=== PATIENT | female | born 1955 | race African-American/Black ===

== ENCOUNTER → 2018-09-24 | Outpatient (CLI) | payer MEDICARE, MEDICAID | END | disposition home or self-care (01) | LOC: RAD 11:39 | DX: M47.815 Spondylosis without myelopathy or radiculopathy, thoracolumbar region (principal); M47.817 Spondylosis without myelopathy or radiculopathy, lumbosacral region; M43.26 Fusion of spine, lumbar region; Z98.890 Other specified postprocedural states | CPT/HCPCS: 72100; 73502 ==

== ENCOUNTER 2022-01-07 07:20 | Inpatient (IN) | payer OTHER, MEDICAID ==
[~2022-01-07] VITALS: Ht 165.1 cm; Wt 126.1 kg
[2022-01-07 10:29] LABS: BASOPHILS % 0.6 % (0.0-2.0); EOSINOPHILS % 1.2 % (0.0-5.0); HEMATOCRIT. 37.3 % (36.0-48.0); HEMOGLOBIN. 12.2 g/dL (12.0-16.0); LYMPHOCYTES % 7.1 % (20.0-50.0); MEAN CORPUSCULAR VOLUME 91.5 fL (81.0-99.0); MEAN PLATELET VOLUME 8.4 fl (7.4-10.4); MONOCYTES % 5.3 % (2.0-8.0); NEUTROPHILS % 85.8 % (40.0-76.0); PLATELET 289 x1000/uL (130-400); RED BLOOD CELL COUNT 4.08 mill/uL (4.2-5.4); RED CELL DISTRIBUTION WIDTH 15.5 % (11.6-14.6)
[2022-01-07 10:35] LABS: CHLORIDE 105 mEq/L (98-107)
[2022-01-07 10:38] LABS: PROTHROMBIN TIME 10.3 sec (9.6-11.0)
[2022-01-07 11:50] LABS: CLARITY URINE CLEAR (CLEAR); COLOR URINE YELLOW (YELLOW); KETONES URINE TRACE (NEGATIVE); LEUKOCYTE ESTERASE URINE NEGATIVE (NEGATIVE); NITRITE URINE NEGATIVE (NEGATIVE); OCCULT BLOOD URINE NEGATIVE (NEGATIVE); PH URINE 5.5 (4.5-8.0); PROTEIN URINE NEGATIVE (NEGATIVE); SPECIFIC GRAVITY URINE 1.026 (1.005-1.030); UROBILINOGEN URINE 0.2 E.U./dL (0.2-1.0)
[2022-01-07 17:00] VITALS: BP_SYST 141; BP_SYST 142; BP_DIAS 82; BP_DIAS 91
[2022-01-07] MEDS ORDERED: LOSA50TA41 PO (17:29)
[2022-01-07] MEDS ORDERED: DILT30TA3 PO (17:29)
[2022-01-07] MEDS ORDERED: FURO40TA5 PO (17:29)
[2022-01-07] MEDS ORDERED: ATOR20TA65 PO (17:29)
[2022-01-07] MEDS ORDERED: ONDANSETRON HCL 4MG/2ML INJ IV PRN (17:30)
[2022-01-07] MEDS ORDERED: DEXTROSE 50% WATER 50ML SYRINGE IV PRN ×2 (17:30→19:30)
[2022-01-07] MEDS ORDERED: ACETAMINOPHEN 325MG TABLET PO PRN (17:30)
[2022-01-07] MEDS ORDERED: ACETAMINOPHEN 650MG/20.3ML UDC PO PRN (17:30)
[2022-01-07] MEDS ORDERED: IPRATROPIUM/ALBUTEROL 0.5-3(2.5)MG/3ML NEB NEB PRN (17:30)
[2022-01-07] MEDS ORDERED: CLONIDINE 0.1MG TABLET PO PRN (17:30)
[2022-01-07] MEDS: ENOXAPARIN 30MG/0.3ML SYR SUBCUT SCH (18:12)
[2022-01-07] MEDS ORDERED: ZAFI20TA13 PO (19:24)
[2022-01-07] MEDS ORDERED: DICL50TA7 PO (19:27)
[2022-01-07] MEDS ORDERED: EMPA25TA PO (19:28)
[2022-01-07] MEDS ORDERED: CALC0.253 PO (19:28)
[2022-01-07] MEDS ORDERED: POTA10CA42 PO (19:29)
[2022-01-07] MEDS ORDERED: GLIM1TAB PO (19:29)
[2022-01-07] MEDS ORDERED: PIOG15TA68 PO (19:30)
[2022-01-07] MEDS ORDERED: OMEP40CA20 PO (19:30)
[2022-01-07 20:00] VITALS: BP 137/93
[2022-01-07] MEDS: ATORVASTATIN CALCIUM 20MG TABLET PO SCH (20:49)
[2022-01-07] MEDS: BLOOD SUGAR DIAGNOSTIC STRIP TEST SCH (20:49)
[2022-01-07] MEDS: INSULIN LISPRO 100 UNITS/ML SUBCUT SCH (20:50)
[2022-01-07] MEDS ORDERED: INSULIN LISPRO 100 UNITS/ML SUBCUT SCH (21:00)
[2022-01-07] MEDS ORDERED: HEPARIN 5000 UNITS/ML VIAL SUBCUT SCH (21:00)
[2022-01-07] MEDS ORDERED: BLOOD SUGAR DIAGNOSTIC STRIP TEST SCH (21:00)
[2022-01-07 22:00] VITALS: BP 140/58
[2022-01-08] VITALS: BP 116/44
[2022-01-08 05:00] VITALS: BP 142/73
[2022-01-08] MEDS: BLOOD SUGAR DIAGNOSTIC STRIP TEST SCH ×4 (06:08→21:13)
[2022-01-08] MEDS: ENOXAPARIN 30MG/0.3ML SYR SUBCUT SCH ×2 (06:08→18:22)
[2022-01-08 07:08] LABS: BASOPHILS % 0.4 % (0.0-2.0); EOSINOPHILS % 2.2 % (0.0-5.0); HEMATOCRIT. 34.7 % (36.0-48.0); HEMOGLOBIN. 11.6 g/dL (12.0-16.0); LYMPHOCYTES % 15.9 % (20.0-50.0); MEAN CORPUSCULAR HEMOGLOBIN 30.2 pg (28.0-32.0); MEAN CORPUSCULAR VOLUME 90.8 fL (81.0-99.0); MEAN PLATELET VOLUME 7.9 fl (7.4-10.4); MONOCYTES % 6.4 % (2.0-8.0); NEUTROPHILS % 75.1 % (40.0-76.0); PLATELET 245 x1000/uL (130-400); RED BLOOD CELL COUNT 3.82 mill/uL (4.2-5.4); RED CELL DISTRIBUTION WIDTH 15.6 % (11.6-14.6)
[2022-01-08 07:20] LABS: CHLORIDE 108 mEq/L (98-107)
[2022-01-08 08:00] VITALS: BP 126/66
[2022-01-08] MEDS ORDERED: ASPIRIN 81MG TABLET PO SCH (09:00)
[2022-01-08] MEDS ORDERED: LOSARTAN POTASSIUM 50 MG TABLET PO SCH (09:00)
[2022-01-08] MEDS: DILTIAZEM HCL 30MG TABLET PO SCH (09:08)
[2022-01-08] MEDS: FUROSEMIDE 40MG TABLET PO SCH ×2 (09:09→18:22)
[2022-01-08] MEDS: INSULIN LISPRO 100 UNITS/ML SUBCUT SCH ×4 (09:10→21:57)
[2022-01-08 12:00] VITALS: BP 134/77
[2022-01-08 16:00] VITALS: BP 142/65
[2022-01-08 20:05] VITALS: BP 152/97
[2022-01-08] MEDS: ATORVASTATIN CALCIUM 20MG TABLET PO SCH (21:10)
[2022-01-09] VITALS (7 sets, daily range): BP systolic 125–155; BP diastolic 64–78
[2022-01-09] MEDS: ENOXAPARIN 30MG/0.3ML SYR SUBCUT SCH ×2 (05:49→17:59)
[2022-01-09] MEDS: BLOOD SUGAR DIAGNOSTIC STRIP TEST SCH ×4 (05:54→20:57)
[2022-01-09] MEDS: INSULIN LISPRO 100 UNITS/ML SUBCUT SCH ×4 (07:20→21:03)
[2022-01-09] MEDS: DILTIAZEM HCL 30MG TABLET PO SCH (09:03)
[2022-01-09] MEDS: FUROSEMIDE 40MG TABLET PO SCH ×2 (09:04→17:57)
[2022-01-09] MEDS ORDERED: DEXAMETHASONE 4MG/ML 1ML VIAL IV NR (16:45)
[2022-01-09] MEDS: ATORVASTATIN CALCIUM 20MG TABLET PO SCH (21:02)
[2022-01-10 00:03] VITALS: BP 112/61
[2022-01-10 04:00] VITALS: BP 145/32
[2022-01-10] MEDS: ENOXAPARIN 30MG/0.3ML SYR SUBCUT SCH ×2 (06:46→17:59)
[2022-01-10] MEDS: BLOOD SUGAR DIAGNOSTIC STRIP TEST SCH ×4 (06:46→21:50)
[2022-01-10 08:23] VITALS: BP 148/72
[2022-01-10 08:36] LABS: BASOPHILS % 0.4 % (0.0-2.0); EOSINOPHILS % 0.1 % (0.0-5.0); HEMATOCRIT. 41.2 % (36.0-48.0); HEMOGLOBIN. 13.6 g/dL (12.0-16.0); LYMPHOCYTES % 10.4 % (20.0-50.0); MEAN CORPUSCULAR HEMOGLOBIN 30.4 pg (28.0-32.0); MEAN CORPUSCULAR VOLUME 92.1 fL (81.0-99.0); MONOCYTES % 3.5 % (2.0-8.0); NEUTROPHILS % 85.6 % (40.0-76.0); PLATELET 265 x1000/uL (130-400); RED BLOOD CELL COUNT 4.48 mill/uL (4.2-5.4); RED CELL DISTRIBUTION WIDTH 15.4 % (11.6-14.6)
[2022-01-10] MEDS: DILTIAZEM HCL 30MG TABLET PO SCH (09:27)
[2022-01-10] MEDS: FUROSEMIDE 40MG TABLET PO SCH ×2 (09:28→17:57)
[2022-01-10] MEDS: INSULIN LISPRO 100 UNITS/ML SUBCUT SCH ×5 (09:29→21:58)
[2022-01-10 12:23] VITALS: BP 141/73
[2022-01-10 16:00] VITALS: BP 151/64
[2022-01-10 20:00] VITALS: BP 121/67
[2022-01-10] MEDS: ATORVASTATIN CALCIUM 20MG TABLET PO SCH (21:57)
[2022-01-11] VITALS: BP 120/53
[2022-01-11 04:00] VITALS: BP 129/65
[2022-01-11] MEDS: ENOXAPARIN 30MG/0.3ML SYR SUBCUT SCH ×2 (06:04→17:36)
[2022-01-11] MEDS: BLOOD SUGAR DIAGNOSTIC STRIP TEST SCH ×4 (06:51→21:36)
[2022-01-11] MEDS: FUROSEMIDE 40MG TABLET PO SCH ×2 (08:11→17:36)
[2022-01-11] MEDS: DILTIAZEM HCL 30MG TABLET PO SCH (08:11)
[2022-01-11] MEDS: INSULIN LISPRO 100 UNITS/ML SUBCUT SCH ×4 (08:12→21:23)
[2022-01-11 08:23] VITALS: BP 113/21
[2022-01-11 12:00] VITALS: BP 151/84
[2022-01-11] MEDS: DEXAMETHASONE 4MG/ML 1ML VIAL IV SCH ×2 (12:33→17:37)
[2022-01-11] MEDS ORDERED: NETA2.5D EACHEYE (15:34)
[2022-01-11] MEDS ORDERED: DORZ10DR8 LEFTEYE (15:34)
[2022-01-11] MEDS ORDERED: BRIM5DRO LEFTEYE (15:34)
[2022-01-11 16:23] VITALS: BP 143/67
[2022-01-11] MEDS: DORZOLAMIDE 2% OP SCH (17:00)
[2022-01-11] MEDS: ALPHAGAN P 0.1% OP SCH (17:00)
[2022-01-11] MEDS: GUAIFENESIN 200MG/10ML SUGAR FREE UDC PO PRN (18:48)
[2022-01-11 20:00] VITALS: BP 135/75
[2022-01-11] MEDS ORDERED: RHOPRESSA 0.02% OP SCH (21:00)
[2022-01-11] MEDS ORDERED: INSULIN LISPRO 100 UNITS/ML SUBCUT NR (21:00)
[2022-01-11] MEDS: ATORVASTATIN CALCIUM 20MG TABLET PO SCH (21:19)
[2022-01-12] VITALS: BP 137/72
[2022-01-12] MEDS: DEXAMETHASONE 4MG/ML 1ML VIAL IV SCH ×3 (00:54→12:57)
[2022-01-12] MEDS: GUAIFENESIN 200MG/10ML SUGAR FREE UDC PO PRN ×2 (00:54→09:36)
[2022-01-12 04:00] VITALS: BP 141/74
[2022-01-12] MEDS: BLOOD SUGAR DIAGNOSTIC STRIP TEST SCH ×2 (06:23→12:24)
[2022-01-12] MEDS: ENOXAPARIN 30MG/0.3ML SYR SUBCUT SCH (06:48)
[2022-01-12 08:00] VITALS: BP 119/71
[2022-01-12] MEDS: FUROSEMIDE 40MG TABLET PO SCH (08:08)
[2022-01-12] MEDS: DILTIAZEM HCL 30MG TABLET PO SCH (08:08)
[2022-01-12] MEDS: INSULIN LISPRO 100 UNITS/ML SUBCUT SCH ×2 (08:09→12:58)
[2022-01-12] MEDS: DORZOLAMIDE 2% OP SCH (08:09)
[2022-01-12] MEDS: ALPHAGAN P 0.1% OP SCH (08:09)
[2022-01-12 12:09] VITALS: BP 119/71
== END 2022-01-12 14:10 | disposition short-term general hospital (02) | DRG 554 ==
LOC: ER 07:20 → 3WST 13:44 → EDBEDREQ 14:09 → EDBEDREQTM 14:09 → ENRESERV 14:40
PROVIDERS: ADMIT Internal Medicine; ATTEND Internal Medicine
DX: M13.862 Other specified arthritis, left knee (principal); G95.20 Unspecified cord compression; I11.0 Hypertensive heart disease with heart failure; I50.9 Heart failure, unspecified; M79.18 Myalgia, other site; Z60.2 Problems related to living alone; E11.36 Type 2 diabetes mellitus with diabetic cataract; Z20.822 Contact with and (suspected) exposure to COVID-19; J45.909 Unspecified asthma, uncomplicated; M13.861 Other specified arthritis, right knee; R26.9 Unspecified abnormalities of gait and mobility; W01.198A Fall on same level from slipping, tripping and stumbling with subsequent striking against other object, initial encounter; Y93.89 Activity, other specified; Y92.091 Bathroom in other non-institutional residence as the place of occurrence of the external cause; Y99.8 Other external cause status
CPT/HCPCS: 36415; 71045; 72141; 72148; 72170; 80048; 80053; 81003; 82962; 83036; 84484; 85025; 86850; 86900; 87426; 93005; 93970; 97162; 97530; 99285; J1100; J1650; J1815